=== PATIENT | male | born 1990 | race Caucasian/White ===

== ENCOUNTER 2018-08-06 12:16 | Observation (INO) ==
[2018-08-06] MEDS ORDERED: Sodium Chloride 0.9% 1,000 ML PRIMARY IV ONE (12:34)
[2018-08-06] MEDS ORDERED: ASPIRIN 81 MG (BABY) CHEWABLE TABLET PO ONE (12:34)
[2018-08-06] MEDS ORDERED: ADENOSINE 6 MG/2 ML IVP ONE ×2 (12:36→12:53)
[2018-08-06 12:41] LABS: BASOPHILS # (AUTO) 0.03 10*3/UL; BASOPHILS % (AUTO) 0.3 % (0-1); EOSINOPHILS # (AUTO) 0.08 10*3/UL; EOSINOPHILS % (AUTO) 0.8 % (0-8); Hematocrit [HCT] 47.8 % (42.0-52.0); Hemoglobin [HGB] 17.3 g/dL (14.0-18.0); LYMPHOCYTES # (AUTO) 2.15 10*3/uL; MEAN CORPUSCULAR HEMOGLOBIN 30.7 PG (27-31); MEAN CORPUSCULAR HGB CONC 36.2 g/dL (33-37); MEAN CORPUSCULAR VOLUME 84.9 FL (80-90); MONOCYTES # (AUTO) 0.93 10*3/UL (0.3-0.8); MONOCYTES % (AUTO) 9.5 % (5-15); NEUTROPHILS # (AUTO) 6.64 10*3/UL; NEUTROPHILS % (AUTO) 67.5 % (50-80); RED BLOOD COUNT 5.63 10^6/uL (4.70-6.10)
[2018-08-06 12:42] LABS: PLATELET MORPHOLOGY COMMENT NORMAL MORPHOLOGY (NORM); RBC MORPHOLOGY COMMENT NORMAL MORPHOLOGY (NORM); WBC MORPHOLOGY COMMENT NORMAL MORPHOLOGY (NORM)
[2018-08-06 12:48] LABS: BLOOD UREA NITROGEN 12 mg/dL (7-22); BUN/CREATININE RATIO 17.14 (6-20); SERUM ALBUMIN 5.3 g/dL (3.5-4.8)
[2018-08-06] MEDS ORDERED: DILTIAZEM 5 MG/ML - 5 ML IV ONE ×2 (12:53→13:19)
--- NOTE | 2018-08-06 13:35 | DI ---
AP CHEST X-RAY, 08/06/2018 12:35 PM : Clinical History: Chest pain. Previous Exam: None at this facility. There is no acute soft tissue or bony abnormality. Heart size is normal. Lungs are clear. Mediastinal structures are normal. There are no pulmonary nodules. Reading: Normal chest x-ray.
[2018-08-06] MEDS ORDERED: Diltiazem Drip 125 MG in Sodium Chloride 0.9% 100 ML IV ONE ×2 (13:47→15:44)
[2018-08-06 14:53] LABS: BILIRUBIN,URINE NEGATIVE (NEG); CLARITY,URINE CLEAR (CLEAR); COLOR,URINE YELLOW; GLUCOSE, URINE (UA) NEGATIVE (NEG); OCCULT BLOOD,URINE Trace-intact (NEG); PH,URINE 8.5 (5.0-8.5); PROTEIN,URINE NEGATIVE (NEG); UROBILINOGEN,URINE 0.2 mg/dL (0.2)
[2018-08-06 15:00] LABS: SQUAMOUS EPITHELIAL CELL,UR RARE; URINE SAMPLE TYPE CLEAN CATCH URINE
--- NOTE | 2018-08-06 15:07 | DI ---
LATERAL CHEST X-RAY, 08/06/2018 2:03 PM : Clinical History: Irregular heart rate. Previous Exam: Earlier today at 1315 hours. There is no acute soft tissue or bony abnormality. Heart size is normal on this lateral projection. N o infiltrate or effusion is present. Mediastinal structures are normal for this lateral projection. T he thoracic spine is normal. Reading: Normal lateral chest x-ray. There is no evidence of cardiac chamber enlargement on this projection.
--- NOTE | 2018-08-06 15:19 | PDOC ---
Palpitations HPI - General Chief Complaint: Palpitations Stated Complaint: svt Date Seen by Provider: 08/06/18 Time Seen by Provider: 13:00 Source: POSITIVE: Patient, Spouse Exam Limitations: POSITIVE: No limitations Nurse's Notes Reviewed & Considered: Yes EMS Report Reviewed & Considered: Verbal Nurse's Notes Reviewed & Considered: Yes - History of Present Illness Initial Comments: The patient is a 27-year-old male. He went to see his primary care provider because for the last 3 days he's had a cough and some nasal congestion. He thinks she's possibly had a fever. His primary care provider noted that the patient was tachycardic and had an irregular rhythm. He or she therefore contacted the ambulance service, who brought the patient to the emergency room. On arrival to the emergency room he had an narrow complex irregular rhythm at about 158/m. 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 Solomon. He denies any chest pain. No syncope or near-syncope. No sore throats. No GI or or sensory or motor symptoms. He states he was diagnosed with "tachycardia "for years ago. Body Location Affected: REPORTS: Chest Timing: REPORTS: Unknown Duration: >24 hours (Probably 3 days) Quality: REPORTS: Other (Patient denies any pain anywhere) Context: REPORTS: Hx of SVT. DENIES: Onset w/ Emotional Upset, Onset w/ Sleep, Hx of Caffeine Use, Hx of Decongestant Use, Hx of Cocaine Abuse, Hx of Amphetamine Abuse, Hx of Arrhythmia, Hx of VT, Hx of Atrial Fibrillation, Hx of WPW, Other Associated Symptoms: REPORTS: Fever Modifying Factors: improves with: None Reported Similar Symptoms Previously: Yes Recently seen/treated/hospitalized: Yes Any Prior Injuries Related to Current Complaint?: No - Patient Home Medications Home Medications: Home Medications NK 08/06/18 - Patient Allergies Allergies/Adverse Reactions: Allergies 3 Allergy/AdvReac Type Severity Reaction Status Date / Time caffeine AdvReac Unknown tachycardia Verified 08/06/18 14:33 Past Medical History - heen HEENT History: Denies History Cardiovascular History: Other (please comment) Additional Cardiovasular History: RAPID HEART RATE Respiratory History: Denies History Gastrointestinal History: Denies History Genitourinary History: Denies History Endocrine History: Denies History Musculoskeletal History: Denies History Prosthesis or Implant: No Neurological History: Denies History Blood Disorders: Denies History Psychiatric History: Denies History History of Sexually Transmitted Diseases: No Cancer History: Denies History History of MDRO: No History of Other Communicable Diseases: No Alcohol Use: Occasionally In the Past 12 Months, Have Used or Abuse Any Substance: None Previous Surgical History: No Anesthesia Reactions: No Malignant Hyperthermia: No Significant Family History: No pertinent family hx Past Medical History Reviewed: Reviewed - No Changes ROS - Limitations ROS Limitations: No Limitations Constitution: REPORTS: Fever (Patient thinks he may have been running a fever lately) Cardiovascular: REPORTS: Denies Cardiac Symptoms Respiratory: REPORTS: Denies Resp Symptoms Neurological: REPORTS: Denies Neuro Symptoms Gastrointestinal: REPORTS: Denies GI Symptoms Endocrine: REPORTS: Denies Symptoms Musculoskeletal: REPORTS: Denies MS Symptoms Genitourinary: REPORTS: Denies Symptoms Eyes: REPORTS: Denies Symptoms ENT: REPORTS: Denies Symptoms Skin: REPORTS: Denies Skin Symptoms Lympathic: REPORTS: Denies Lympathic Symptoms Immunologic: POSITIVE: Denies Symptoms Psychiatric: POSITIVE: Denies Psych Symptoms Palpitations Exam - General Appearance General Appearance: REPORTS: Alert, Cooperative, No Acute Distress, No Evidence of Trauma - HEENT HEENT: POSITIVE: Head Inspection Nml, Eyes Inspection Nml, Ears Inspection Nml, Nose Inspection Nml, Oral/Dental Inspect. Nml, Pharynx Inspect. Nml, PERRL, EOMI - Neck Neck: POSITIVE: Normal Inspection - Respiratory Respiratory: REPORTS: No Respiratory Distress, Breath Sounds Normal, Chest Non- Tender - Cardiovascular Cardiovascular: POSITIVE: Normal PMI, No JVD, No Murmur, No Gallop, No Friction Rub, Irreg Irregular Rhythm, Tachycardia. NEGATIVE: Regular Rate and Rhythm ( irregular) Peripheral Pulses: Radial (R): 2+, Radial (L): 2+ - Abdomen Abdomen: Soft: (All Quadrants), Normal Bowel Sounds: (All Quadrants), Denies Tenderness: (All Quadrants), No Splenomegaly: (All Quadrants), No Hepatomegaly: (All Quadrants), No Guarding: (All Quadrants), No Rebound: (All Quadrants), No Palpable Pulse: (All Quadrants), No Palpabale Mass: (All Quadrants), No Distention: (All Quadrants), No Rigidity: (All Quadrants) - Back Back: POSITIVE: Normal Inspection - Skin Skin: REPORTS: Intact, Normal For Race, Warm, Dry, No Rash - Extremities Extremity: Non-Tender: (All Extremities), Normal ROM: (All Extremities), Normal Inspection: (All Extremities) - Neurological / Psychological Neurological: POSITIVE: Affect Apporpriate, Oriented X3, 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 Normal As Tested, Motor Normal, Sensation Normal Palpitations Progress - Results Reviewed by me Xrays/CTs/US Reviewed by me: Yes Discussed with Radiologist: Yes Radiology Findings: Chest x-ray normal per radiologist Lab Results Reviewed by Me: Yes Lab Results:: Laboratory Results 3 08/06/18 08/06/18 08/06/18 12:18 12:18 12:18 WBC RBC Hgb Hct MCV MCH MCHC RDW Std Deviation RDW Coeff of Talon Plt Count MPV Immature Gran % (Auto) Neut % (Auto) Lymph % (Auto) [place] % (Auto) Eos % (Auto) Baso % (Auto) Immature Gran # (Auto) Neut # (Auto) Lymph # (Auto) [place] # (Auto) Eos # (Auto) Baso # (Auto) WBC Morphology Comment Plt Morphology Comment RBC Morph Comment D-Dimer Sodium 139 Potassium 4.3 Chloride 106 Carbon Dioxide 22 L Anion Gap 11 BUN 12 Creatinine 0.7 Estimated GFR > 60 BUN/Creatinine Ratio 17.14 Glucose 97 Calculated Osmolality 287.0 Calcium 10.3 Total Bilirubin 0.3 AST 40 ALT 51 Alkaline Phosphatase 71 CK-MB (CK-2) 0.42 Troponin I < 0.012 NT-Pro-B Natriuret Pep 26.2 Total Protein 8.5 H Albumin 5.3 H Globulin 3.2 Albumin/Globulin Ratio 1.60 TSH Free T4 Ur Collection Type Urine Color Urine Clarity Urine pH Ur Specific Mize Urine Protein Urine Glucose (UA) Urine Ketones Urine Occult Blood Urine Nitrate Urine Bilirubin Urine Urobilinogen Ur Leukocyte Esterase Urine RBC Urine WBC Ur Squamous Epith Cells Ur Renal Epithelial Cell Urine Crystals Urine Bacteria Urine Casts Urine Mucus Urine Trichomonas Urine Yeast 3 08/06/18 08/06/18 08/06/18 12:18 12:30 12:35 WBC 9.84 RBC 5.63 Hgb 17.3 Hct 47.8 MCV 84.9 MCH 30.7 MCHC 36.2 RDW Std Deviation 40.0 RDW Coeff of Talon 12.9 Plt Count 305 MPV 10.0 Immature Gran % (Auto) 0.1 Neut % (Auto) 67.5 Lymph % (Auto) 21.8 [place] % (Auto) 9.5 Eos % (Auto) 0.8 Baso % (Auto) 0.3 Immature Gran # (Auto) 0.01 Neut # (Auto) 6.64 Lymph # (Auto) 2.15 [place] # (Auto) 0.93 H Eos # (Auto) 0.08 Baso # (Auto) 0.03 WBC Morphology Comment Normal morphology Plt Morphology Comment Normal morphology RBC Morph Comment Normal morphology D-Dimer 0.19 Sodium Potassium Chloride Carbon Dioxide Anion Gap BUN Creatinine Estimated GFR BUN/Creatinine Ratio Glucose Calculated Osmolality Calcium Total Bilirubin AST ALT Alkaline Phosphatase CK-MB (CK-2) Troponin I NT-Pro-B Natriuret Pep Total Protein Albumin Globulin Albumin/Globulin Ratio TSH 4.79 H Free T4 1.09 Ur Collection Type Urine Color Urine Clarity Urine pH Ur Specific Mize Urine Protein Urine Glucose (UA) Urine Ketones Urine Occult Blood Urine Nitrate Urine Bilirubin Urine Urobilinogen Ur Leukocyte Esterase Urine RBC Urine WBC Ur Squamous Epith Cells Ur Renal Epithelial Cell Urine Crystals Urine Bacteria Urine Casts Urine Mucus Urine Trichomonas Urine Yeast 3 08/06/18 14:50 WBC RBC Hgb Hct MCV MCH MCHC RDW Std Deviation RDW Coeff of Talon Plt Count MPV Immature Gran % (Auto) Neut % (Auto) Lymph % (Auto) [place] % (Auto) Eos % (Auto) Baso % (Auto) Immature Gran # (Auto) Neut # (Auto) Lymph # (Auto) [place] # (Auto) Eos # (Auto) Baso # (Auto) WBC Morphology Comment Plt Morphology Comment RBC Morph Comment D-Dimer Sodium Potassium Chloride Carbon Dioxide Anion Gap BUN Creatinine Estimated GFR BUN/Creatinine Ratio Glucose Calculated Osmolality Calcium Total Bilirubin AST ALT Alkaline Phosphatase CK-MB (CK-2) Troponin I NT-Pro-B Natriuret Pep Total Protein Albumin Globulin Albumin/Globulin Ratio TSH Free T4 Ur Collection Type Clean catch urine Urine Color Yellow Urine Clarity Clear Urine pH 8.5 Ur Specific Mize 1.015 Urine Protein Negative Urine Glucose (UA) Negative Urine Ketones Negative Urine Occult Blood Trace-intact Urine Nitrate Negative Urine Bilirubin Negative Urine Urobilinogen 0.2 Ur Leukocyte Esterase Negative Urine RBC None Urine WBC None Ur Squamous Epith Cells Rare Ur Renal Epithelial Cell None Urine Crystals None Urine Bacteria None Urine Casts None Urine Mucus None Urine Trichomonas None Urine Yeast None CBC and BMP: 08/06/18 12:35 08/06/18 12:18 EKG Interpreted/Reviewed By Me:: Yes EKG Interpretation:: POSITIVE: Normal Intervals, Normal [place], Normal QRS, Normal ST/T. NEGATIVE: Normal Sinus Rhythm, Normal Rate - Patient's Progress Pain Medication Addressed: POSITIVE: Not Applicable School/Work Release Addressed: POSITIVE: Not Applicable Re-examine Time: 14:00 Re-Examine Comment: On patient's initial presentation to the emergency room he seemed to have a sinus tachycardia with runs of atrial fibrillation. Patient given 6 mg of adenosine which temporary slowed his rate and which showed a atrial fibrillation. His tachycardia then resumed. At this point the patient was given 0.25 mg of Cardizem by bolus over 2 minutes with no improvement and then this was repeated at 0.35 mg/kg, also without any improvement. Patient was then started on a Cardizem drip at 15 mg per hour. At this time the patient still has a narrow complex tachycardia at around 147/m. Patient otherwise remains asymptomatic except for a hacking cough. Status: POSITIVE: Unchanged, Re-Examined Quality Measure Initiative: CP/AMI: POSITIVE: EKG, ASA - Consult Consult (If Yes, Name of Consulting MD & Time Called): Yes (Dr. Barker, hospitalist, [id number]) Consulting MD will see pt:: [place] [facility] [place] Counseled: POSITIVE: Patient, Family, RE: Lab Results, RE: Radiology Results, RE : DX, RE: Need for F/U Patient Care Time - Estimated PCT Patient Care Time (In Minutes): 60 Vital Signs - Recent Vital Signs Vital Signs: Blood pressure 134/50, heart rate 157 and irregular, respiratory rate 16, temperature 90.9F, oxygen saturation 100% on room air. - VS Reviewed Vital Signs Reviewed: Yes Discharge Clinical Impression: Atrial arrhythmia Discharge Disposition: Admit to Inpatient Follow Up With: MYRIAM GOODE [Primary Care Provider] - Date Decision to Admit to Inpatient: 08/06/18 Time Decision to Admit to Inpatient: 14:00
[2018-08-06] MEDS ORDERED: LIDOCAINE W/ SODIUM BICARB 0.5 ML SYR SUBD PRN (15:44)
[2018-08-06] MEDS ORDERED: ONDANSETRON 4 MG/2 ML VIAL IVP PRN (15:44)
[2018-08-06] MEDS ORDERED: DOCUSATE 100 MG CAPSULE PO PRN (15:44)
[2018-08-06] MEDS ORDERED: CALCIUM CARBONATE 500 MG (TUMS) CHEWABLE TABLET PO PRN (15:44)
[2018-08-06] MEDS ORDERED: ACETAMINOPHEN 325 MG TABLET PO PRN (15:44)
[2018-08-06 15:49] VITALS: TEMP 99
--- NOTE | 2018-08-06 16:06 | PDOC ---
HPI - History of Present Illness Date of Service: 08/06/18 Time of Service: 16:04 Chief Complaint: Cough History of Present Illness: This very pleasant 27-year-old male with a history of supraventricular tachycardia on Taztia, although he has not been able to afford it due to loss of insurance and job in the past, who presents today with complaints of cough for the last couple of days along with congestion, some phlegm and postnasal drip, and low-grade temps to 99. He was noted to have a fast heart rate in the urgent care when he presented with the symptoms. He's been using NyQuil, but the high blood pressure version. It does still have antihistamines at that can cause tachycardia. He was not aware that when he was taking the medication. In the urgent care, an EKG was done and although the machine read out atrial fibrillation it marches out regularly for supraventricular tachycardia. He had vagal maneuvers done and carotid massage done and his heart rate did not respond. He then came to the emergency room via ambulance and they gave him adenosine and he initially slowed to some degree but went right back into SVT. He was placed on Cardizem drip and has not been able to slow down. He was admitted to me at that point. He was up to 20 mg per hour, and then his systolic blood pressure dropped down into the 80s. He is currently on 15 mg per hour. His heart rate persisted and the 150s to 160s. Emergency room physician told me that when it did slow down, he could've been in atrial fibrillation, but I'm certainly not seeing that on the tracings that I have available. When I watch him on the heart rate monitor, it looks like SVT with an occasional premature ventricular contraction. The patient does state that he is mildly short of breath but he denies any chest pain and he is otherwise asymptomatic. I spoke with cardiology in [place], and we will transfer the patient there for continued monitoring and any potential cardioversion should he need it. Detail to me that he had some ear pressure on the right side, but was told he had no evidence of ear infection on exam in the urgent care. He had a chest x-ray done and there was no evidence of pneumonia. Past Medical History Medical History: 1. Supraventricular tachycardia, generally managed with taztia , with recommendations at one point to consider ablation Surgical History: Right leg surgery due to an injury Pertinent Family History: Significant for hypertension in his father Past Social History: . Has healthy children. Currently works for [employer]. Does not smoke. Occasionally drinks alcohol. Tobacco Use: Never Smoker In the Past 12 Months, Have Used or Abuse Any of the Following Substance: None Alcohol Use: Occasionally Medication / Allergies Home Medications: Home Medications 3 Medication Instructions Recorded Confirmed Type NK 08/06/18 08/06/18 History Allergies/Adverse Reactions: Allergies 3 Allergy/AdvReac Type Severity Reaction Status Date / Time caffeine AdvReac Unknown tachycardia Verified 08/06/18 14:33 Review of Systems - Review of Systems All Systems: Reviewed & No Additional Complaints Except as Stated (I did a 12 point review of systems and other than that discussed in history present illness it is negative with exceptions noted below.) - Ear/Nose Exam Ear/Nose Exam: REPORTS: Sinus Pain, Rhinorrhea, Congestion Exam - Vitals Vital Signs: Vital Signs Temperature 99.0 F Temperature Source Oral Pulse Rate [Telemetry] 158 Respiratory Rate 22 Blood Pressure [Right Arm] 106/85 Pulse Ox 99 Oxygen Delivery Method Room Air Height 5 ft 9 in Weight 159 lb 4.8 oz - General General Appearance: No Acute Distress, Cooperative - Head Head Exam: Normal Inspection, Normocephalic, Atraumatic - Eye Eye Exam: POSITIVE: No Scleral Icterus - ENT ENT Exam: POSITIVE: TM's Normal Bilaterally (No evidence of erythema.), Mucous Membranes Moist Additonal ENT Exam Details: No sinus tenderness on palpation of face. - Neck Neck Exam: Normal Inspection, No Tenderness, No Lymphadenopathy, No Thyromegaly , JVP is not Raised - Respiratory Respiratory Exam: POSITIVE: Clear to Auscultation - Bilaterally, Breathing Non Labored, Normal to Percussion and Palpation - Cardiovascular Cardiovascular Exam: POSITIVE: No Murmur, No Clicks, No Gallops, No Rubs, Tachycardia, No JVD - GI/Abdominal GI/Abdominal Exam: POSITIVE: Normal Bowel Sounds, Non Tender, Non Distended, Soft - Rectal Rectal Exam: POSITIVE: Deferred - External Exam: POSITIVE: Deferred Exam: POSITIVE: Deferred - Extremities Extremities Exam: POSITIVE: No Clubbing Present, No Edema Present, No Cyanosis Present - Back Back Exam: POSITIVE: No CVA Tenderness - Neurological Neurological Exam: POSITIVE: Alert, Oriented x 3, No Facial Droop, Speech Intact / Clear, Moves All Extremities Equally - Psychiatric Psychiatric Exam: POSITIVE: Normal Affect, Normal Mood Results - Labs CBC and BMP: 08/06/18 12:35 08/06/18 12:18 Additional Lab Results: Laboratory Results 08/06/18 08/06/18 08/06/18 Range/Units 12:18 12:18 12:18 WBC (4.8-10.8) 10^3/uL RBC (4.70-6.10) 10^6/uL Hgb (14.0-18.0) g/dL Hct (42.0-52.0) % MCV (80-90) FL MCH (27-31) PG MCHC (33-37) g/dL RDW Std Deviation (39-50) fL RDW Coeff of [place] (11.5-14.5) % Plt Count (140-350) 10*3/uL MPV (7.4-12.2) FL Immature Gran % (Auto) (0-5) % Neut % (Auto) (50-80) % Lymph % (Auto) (10-50) % [place] % (Auto) (5-15) % Eos % (Auto) (0-8) % Baso % (Auto) (0-1) % Immature Gran # (Auto) 10*3/UL Neut # (Auto) 10*3/UL Lymph # (Auto) 10*3/uL [place] # (Auto) (0.3-0.8) 10*3/UL Eos # (Auto) 10*3/UL Baso # (Auto) 10*3/UL WBC Morphology Comment (NORM) Plt Morphology Comment (NORM) RBC Morph Comment (NORM) D-Dimer (0.00-0.59) mg/L Sodium 139 (135-145) meq/L Potassium 4.3 (3.8-5.2) meq/L Chloride 106 (98-112) meq/L Carbon Dioxide 22 L (23-33) meq/L Anion Gap 11 (5-20) BUN 12 (7-22) mg/dL Creatinine 0.7 (0.70-1.50) mg/dL Estimated GFR > 60 (>60 ml/min/1.73m(2)) BUN/Creatinine Ratio 17.14 (6-20) Glucose 97 (78-110) mg/dL Calculated Osmolality 287.0 (267-292) mOsm/kg Calcium 10.3 (8.7-10.7) mg/dL Total Bilirubin 0.3 (0.3-1.2) mg/dL AST 40 (21-57) IU/L ALT 51 (21-72) IU/L Alkaline Phosphatase 71 (38-126) IU/L CK-MB (CK-2) 0.42 (0.00-5.00) NG/ML Troponin I < 0.012 (< 0.040) ng/mL NT-Pro-B Natriuret Pep 26.2 (0-125) PG/ML Total Protein 8.5 H (6.1-8.0) g/dL Albumin 5.3 H (3.5-4.8) g/dL Globulin 3.2 (2.50-4.10) g/dL Albumin/Globulin Ratio 1.60 (1.3-2.0) mg/g TSH (0.2700-4.2000) uIU/mL Free T4 (0.93-1.71) ng/dL Ur Collection Type Urine Color Urine Clarity (CLEAR) Urine pH (5.0-8.5) Ur Specific [place] (1.005-1.030) Urine Protein (NEG) mg/dl Urine Glucose (UA) (NEG) mg/dL Urine Ketones (NEG) Urine Occult Blood (NEG) Urine Nitrate (NEG) Urine Bilirubin (NEG) Urine Urobilinogen (0.2) mg/dL Ur Leukocyte Esterase (NEG) Urine RBC (NONE) /hpf Urine WBC (NONE) Ur Squamous Epith Cells (NONE) Ur Renal Epithelial Cell (NONE) Urine Crystals Urine Bacteria (NONE) Urine Casts Urine Mucus (NONE) Urine Trichomonas (NONE) Urine Yeast (NONE) 08/06/18 08/06/18 08/06/18 Range/Units 12:18 12:30 12:35 WBC 9.84 (4.8-10.8) 10^3/uL RBC 5.63 (4.70-6.10) 10^6/uL Hgb 17.3 (14.0-18.0) g/dL Hct 47.8 (42.0-52.0) % MCV 84.9 (80-90) FL MCH 30.7 (27-31) PG MCHC 36.2 (33-37) g/dL RDW Std Deviation 40.0 (39-50) fL RDW Coeff of [place] 12.9 (11.5-14.5) % Plt Count 305 (140-350) 10*3/uL MPV 10.0 (7.4-12.2) FL Immature Gran % (Auto) 0.1 (0-5) % Neut % (Auto) 67.5 (50-80) % Lymph % (Auto) 21.8 (10-50) % [place] % (Auto) 9.5 (5-15) % Eos % (Auto) 0.8 (0-8) % Baso % (Auto) 0.3 (0-1) % Immature Gran # (Auto) 0.01 10*3/UL Neut # (Auto) 6.64 10*3/UL Lymph # (Auto) 2.15 10*3/uL [place] # (Auto) 0.93 H (0.3-0.8) 10*3/UL Eos # (Auto) 0.08 10*3/UL Baso # (Auto) 0.03 10*3/UL WBC Morphology Comment Normal morphology (NORM) Plt Morphology Comment Normal morphology (NORM) RBC Morph Comment Normal morphology (NORM) D-Dimer 0.19 (0.00-0.59) mg/L Sodium (135-145) meq/L Potassium (3.8-5.2) meq/L Chloride (98-112) meq/L Carbon Dioxide (23-33) meq/L Anion Gap (5-20) BUN (7-22) mg/dL Creatinine (0.70-1.50) mg/dL Estimated GFR (>60 ml/min/1.73m(2)) BUN/Creatinine Ratio (6-20) Glucose (78-110) mg/dL Calculated Osmolality (267-292) mOsm/kg Calcium (8.7-10.7) mg/dL Total Bilirubin (0.3-1.2) mg/dL AST (21-57) IU/L ALT (21-72) IU/L Alkaline Phosphatase (38-126) IU/L CK-MB (CK-2) (0.00-5.00) NG/ML Troponin I (< 0.040) ng/mL NT-Pro-B Natriuret Pep (0-125) PG/ML Total Protein (6.1-8.0) g/dL Albumin (3.5-4.8) g/dL Globulin (2.50-4.10) g/dL Albumin/Globulin Ratio (1.3-2.0) mg/g TSH 4.79 H (0.2700-4.2000) uIU/mL Free T4 1.09 (0.93-1.71) ng/dL Ur Collection Type Urine Color Urine Clarity (CLEAR) Urine pH (5.0-8.5) Ur Specific [place] (1.005-1.030) Urine Protein (NEG) mg/dl Urine Glucose (UA) (NEG) mg/dL Urine Ketones (NEG) Urine Occult Blood (NEG) Urine Nitrate (NEG) Urine Bilirubin (NEG) Urine Urobilinogen (0.2) mg/dL Ur Leukocyte Esterase (NEG) Urine RBC (NONE) /hpf Urine WBC (NONE) Ur Squamous Epith Cells (NONE) Ur Renal Epithelial Cell (NONE) Urine Crystals Urine Bacteria (NONE) Urine Casts Urine Mucus (NONE) Urine Trichomonas (NONE) Urine Yeast (NONE) 08/06/18 Range/Units 14:50 WBC (4.8-10.8) 10^3/uL RBC (4.70-6.10) 10^6/uL Hgb (14.0-18.0) g/dL Hct (42.0-52.0) % MCV (80-90) FL MCH (27-31) PG MCHC (33-37) g/dL RDW Std Deviation (39-50) fL RDW Coeff of [place] (11.5-14.5) % Plt Count (140-350) 10*3/uL MPV (7.4-12.2) FL Immature Gran % (Auto) (0-5) % Neut % (Auto) (50-80) % Lymph % (Auto) (10-50) % [place] % (Auto) (5-15) % Eos % (Auto) (0-8) % Baso % (Auto) (0-1) % Immature Gran # (Auto) 10*3/UL Neut # (Auto) 10*3/UL Lymph # (Auto) 10*3/uL [place] # (Auto) (0.3-0.8) 10*3/UL Eos # (Auto) 10*3/UL Baso # (Auto) 10*3/UL WBC Morphology Comment (NORM) Plt Morphology Comment (NORM) RBC Morph Comment (NORM) D-Dimer (0.00-0.59) mg/L Sodium (135-145) meq/L Potassium (3.8-5.2) meq/L Chloride (98-112) meq/L Carbon Dioxide (23-33) meq/L Anion Gap (5-20) BUN (7-22) mg/dL Creatinine (0.70-1.50) mg/dL Estimated GFR (>60 ml/min/1.73m(2)) BUN/Creatinine Ratio (6-20) Glucose (78-110) mg/dL Calculated Osmolality (267-292) mOsm/kg Calcium (8.7-10.7) mg/dL Total Bilirubin (0.3-1.2) mg/dL AST (21-57) IU/L ALT (21-72) IU/L Alkaline Phosphatase (38-126) IU/L CK-MB (CK-2) (0.00-5.00) NG/ML Troponin I (< 0.040) ng/mL NT-Pro-B Natriuret Pep (0-125) PG/ML Total Protein (6.1-8.0) g/dL Albumin (3.5-4.8) g/dL Globulin (2.50-4.10) g/dL Albumin/Globulin Ratio (1.3-2.0) mg/g TSH (0.2700-4.2000) uIU/mL Free T4 (0.93-1.71) ng/dL Ur Collection Type Clean catch urine Urine Color Yellow Urine Clarity Clear (CLEAR) Urine pH 8.5 (5.0-8.5) Ur Specific [place] 1.015 (1.005-1.030) Urine Protein Negative (NEG) mg/dl Urine Glucose (UA) Negative (NEG) mg/dL Urine Ketones Negative (NEG) Urine Occult Blood Trace-intact (NEG) Urine Nitrate Negative (NEG) Urine Bilirubin Negative (NEG) Urine Urobilinogen 0.2 (0.2) mg/dL Ur Leukocyte Esterase Negative (NEG) Urine RBC None (NONE) /hpf Urine WBC None (NONE) Ur Squamous Epith Cells Rare (NONE) Ur Renal Epithelial Cell None (NONE) Urine Crystals None Urine Bacteria None (NONE) Urine Casts None Urine Mucus None (NONE) Urine Trichomonas None (NONE) Urine Yeast None (NONE) - EKG Data -: EKG Interpreted by Me Rate: Tachycardia EKG Shows Normal: Sinus Rhythm - EKG Data EKG Interpretation: Other (This EKG was done in the clinic, and shows SVT on my view of the EKG. I do not have any EKGs from the emergency room. I was told that the rate initially did slow down to some degree with medications, and it perhaps was in atrial fibrillation although he did not persist in a slower rhythm despite adenosine and then Cardizem.) - Imaging Status: Image Reviewed by Me (Chest x-ray on my view is negative for pneumonia) Assessment and Plan - Patient Problems (1) SVT (supraventricular tachycardia) Current Visit: Yes Status: Acute Code(s): I47.1 - Supraventricular tachycardia (2) Viral syndrome Current Visit: Yes Status: Acute Code(s): B34.9 - Viral infection, unspecified - Assessment / Plan Additional Assessment/Plan Details: Given the patient's history, and use of [id number] antihistamine and NyQuil high blood pressure prep, this is what appears to be refractory supraventricular tachycardia that is not responding to adenosine, vasovagal maneuvers, or to Cardizem drip. There could be underlying atrial fibrillation. Either way, when the Cardizem drip was increased, the patient's systolic blood pressure is decreasing and so I don't think where he can't go more than 15 mg per hour at this time. His systolics currently or in the 100s. Given that he is a lean individual, I suspect that he probably runs lower systolics or normal systolic blood pressures. He is hemodynamically stable, but it may not remain that way. I think it would be much safer to have this patient in a setting where he could have potential DC cardioversion if necessary with the classification counselor. I spoke to the patient's classification counselor and he agreed to accept him at [facility] in [place], [place]. In terms of the upper respiratory symptoms, low-grade temperature of 99, I think he can be supported symptomatically with fluids, Tylenol for fever when necessary. I do not see any indication for antibiotics at this point. There is no active pneumonia on chest x-ray. D-dimer is negative, so I don't think there is a pulmonary emboli. It appears as isolated SVT so I think we can hold off on a CT scan at this point. Again, my concern is that this is refractory or unresponsive SVT at this point. This is despite normal measures for it, and perhaps it's related to NyQuil, but best assessed with the classification counselor. I greatly appreciate Dr. Solomon's assistance in this patient and his gracious acceptance of the patient to help him with this problem. I did speak with the patient and his about my recommendations to proceed to [place], and they were in agreement. In the meantime continue Hanna gao. Question potential ablation in the future, as per cardiology and the patient
[2018-08-06 16:11] VITALS: BP 115/72; RESP 18; O2SAT 97
--- NOTE | 2018-08-06 16:35 | DCSUMMARY ---
Hospitalization Summary Admit Date: 08/06/2018 Discharge Date: 08/06/18 Primary Diagnosis:: supraventricular tachycardia with possible A. fib Hospital Course: This very pleasant 27-year-old male who was admitted, placed on Cardizem, in the setting of SVT that did not respond to vasovagal maneuvers in the clinic earlier today, adenosine or Cardizem in the emergency room, although apparently he may have had some underlying atrial fibrillation per the emergency room physician's assessment after some initial slowing with adenosine. His history reveals that he took some NyQuil high blood pressure formulation which still contains antihistamines and likely caused the patient to go into this heart rhythm. He has some underlying viral syndrome symptoms of cough, congestion, and low-grade temperature at 99. He had some sinus tenderness that resolved. He has some postnasal drip. No evidence of pneumonia on chest x-ray. His d- dimer is negative and so unlikely has PE. 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. I'm not clear yet on whether or not the patient will need EC cardioversion for further cardiac workup. He has not been able to afford his calcium channel malena, but he was not aware that this also comes in a generic form. His and the patient and they agreed with the plan. Currently the patient does not have any chest pain. He stated that he had some mild shortness of breath, and he has no nausea or vomiting. His systolic pressure is 106, his heart rates in the 150s. Please note I asked the patient about use of any methamphetamines and he denies use. Urine drug screen is pending, but I do have orders in the lab and discussed with them and they will do that now. I believe the patient, but feel that with this presentation and it's best to check. Assessment and Plan: 1. As per discharge assessments noted 2. Disposition: Patient is discharged to [facility] 3. Condition on discharge, stable but his condition could deteriorate into unstable narrow complex tachycardia. 4. Diet: Nothing by mouth for now 5. Activities: As per [facility] 6. Follow-Up: 1. Sera Lamar in 7 days post discharge 2. 7. Medications at the Time of Discharge: Active Medications Generic Name Dose Route Start Last Admin Trade Name Freq PRN Reason Stop Dose Admin Acetaminophen 650 mg 08/06/18 15:44 Tylenol PO Q6H PRN Pain or Fever Calcium Carbonate 1 - 2 tab 08/06/18 15:44 Tums PO Q6H PRN Heartburn Docusate Sodium 100 mg 08/06/18 15:44 Colace PO BID PRN Constipation Sodium Chloride 1,000 mls @ 125 mls/hr 08/06/18 12:34 08/06/18 12:55 Normal Saline PRIMARY IV 08/06/18 20:33 Not Given ONCE (ED) ONE Diltiazem HCl 125 mg/ Sodium 125 mls @ 15 mls/hr 08/06/18 15:44 Chloride IV 08/07/18 00:03 .TITRATE ONE Protocol 15 MG/HR Sodium Chloride 25 mls @ 200 mls/hr 08/06/18 15:44 Normal Saline 0.9% IV .Post Infusion PRN No Primary IV for Flush ONLY Lidocaine HCl 0.5 ml 08/06/18 15:44 Lidocaine Buffered Inj SUBD ONCE PRN IV Starts Ondansetron HCl 4 mg 08/06/18 15:44 Zofran Inj IVP Q4H PRN NAUSEA / VOMITING 8. Time, care, counseling and coordination of care for this discharge is greater than 30 minutes. Exam - Vitals Vital Signs: Vital Signs Temperature 99.0 F Temperature Source Oral Pulse Rate [Telemetry] 160 Pulse Rate 160 Respiratory Rate 18 Blood Pressure [Right Arm] 115/72 Pulse Ox 97 Oxygen Delivery Method Room Air Height 5 ft 9 in Weight 159 lb 4.8 oz - General General Appearance: No Acute Distress, Cooperative - Eye Eye Exam: POSITIVE: No Scleral Icterus - Respiratory Respiratory Exam: POSITIVE: Clear to Auscultation - Bilaterally, Breathing Non Labored - Cardiovascular Cardiovascular Exam: POSITIVE: No Murmur, No Clicks, No Gallops, No Rubs, Tachycardia, No JVD - GI/Abdominal GI/Abdominal Exam: POSITIVE: Normal Bowel Sounds, Non Tender, Non Distended, Soft - Extremities Extremities Exam: POSITIVE: No Clubbing Present, No Edema Present, No Cyanosis Present - Neurological Neurological Exam: POSITIVE: Alert, Oriented x 3, No Facial Droop, Speech Intact / Clear, Moves All Extremities Equally Data Peritnent Studies: Laboratory Results 08/06/18 08/06/18 08/06/18 Range/Units 12:18 12:18 12:18 WBC (4.8-10.8) 10^3/uL RBC (4.70-6.10) 10^6/uL Hgb (14.0-18.0) g/dL Hct (42.0-52.0) % MCV (80-90) FL MCH (27-31) PG MCHC (33-37) g/dL RDW Std Deviation (39-50) fL RDW Coeff of Talon (11.5-14.5) % Plt Count (140-350) 10*3/uL MPV (7.4-12.2) FL Immature Gran % (Auto) (0-5) % Neut % (Auto) (50-80) % Lymph % (Auto) (10-50) % Pratt % (Auto) (5-15) % Eos % (Auto) (0-8) % Baso % (Auto) (0-1) % Immature Gran # (Auto) 10*3/UL Neut # (Auto) 10*3/UL Lymph # (Auto) 10*3/uL Pratt # (Auto) (0.3-0.8) 10*3/UL Eos # (Auto) 10*3/UL Baso # (Auto) 10*3/UL WBC Morphology Comment (NORM) Plt Morphology Comment (NORM) RBC Morph Comment (NORM) D-Dimer (0.00-0.59) mg/L Sodium 139 (135-145) meq/L Potassium 4.3 (3.8-5.2) meq/L Chloride 106 (98-112) meq/L Carbon Dioxide 22 L (23-33) meq/L Anion Gap 11 (5-20) BUN 12 (7-22) mg/dL Creatinine 0.7 (0.70-1.50) mg/dL Estimated GFR > 60 (>60 ml/min/1.73m(2)) BUN/Creatinine Ratio 17.14 (6-20) Glucose 97 (78-110) mg/dL Calculated Osmolality 287.0 (267-292) mOsm/kg Calcium 10.3 (8.7-10.7) mg/dL Total Bilirubin 0.3 (0.3-1.2) mg/dL AST 40 (21-57) IU/L ALT 51 (21-72) IU/L Alkaline Phosphatase 71 (38-126) IU/L CK-MB (CK-2) 0.42 (0.00-5.00) NG/ML Troponin I < 0.012 (< 0.040) ng/mL NT-Pro-B Natriuret Pep 26.2 (0-125) PG/ML Total Protein 8.5 H (6.1-8.0) g/dL Albumin 5.3 H (3.5-4.8) g/dL Globulin 3.2 (2.50-4.10) g/dL Albumin/Globulin Ratio 1.60 (1.3-2.0) mg/g TSH (0.2700-4.2000) uIU/mL Free T4 (0.93-1.71) ng/dL Ur Collection Type Urine Color Urine Clarity (CLEAR) Urine pH (5.0-8.5) Ur Specific Beeler (1.005-1.030) Urine Protein (NEG) mg/dl Urine Glucose (UA) (NEG) mg/dL Urine Ketones (NEG) Urine Occult Blood (NEG) Urine Nitrate (NEG) Urine Bilirubin (NEG) Urine Urobilinogen (0.2) mg/dL Ur Leukocyte Esterase (NEG) Urine RBC (NONE) /hpf Urine WBC (NONE) Ur Squamous Epith Cells (NONE) Ur Renal Epithelial Cell (NONE) Urine Crystals Urine Bacteria (NONE) Urine Casts Urine Mucus (NONE) Urine Trichomonas (NONE) Urine Yeast (NONE) 08/06/18 08/06/18 08/06/18 Range/Units 12:18 12:30 12:35 WBC 9.84 (4.8-10.8) 10^3/uL RBC 5.63 (4.70-6.10) 10^6/uL Hgb 17.3 (14.0-18.0) g/dL Hct 47.8 (42.0-52.0) % MCV 84.9 (80-90) FL MCH 30.7 (27-31) PG MCHC 36.2 (33-37) g/dL RDW Std Deviation 40.0 (39-50) fL RDW Coeff of Talon 12.9 (11.5-14.5) % Plt Count 305 (140-350) 10*3/uL MPV 10.0 (7.4-12.2) FL Immature Gran % (Auto) 0.1 (0-5) % Neut % (Auto) 67.5 (50-80) % Lymph % (Auto) 21.8 (10-50) % Pratt % (Auto) 9.5 (5-15) % Eos % (Auto) 0.8 (0-8) % Baso % (Auto) 0.3 (0-1) % Immature Gran # (Auto) 0.01 10*3/UL Neut # (Auto) 6.64 10*3/UL Lymph # (Auto) 2.15 10*3/uL Pratt # (Auto) 0.93 H (0.3-0.8) 10*3/UL Eos # (Auto) 0.08 10*3/UL Baso # (Auto) 0.03 10*3/UL WBC Morphology Comment Normal morphology (NORM) Plt Morphology Comment Normal morphology (NORM) RBC Morph Comment Normal morphology (NORM) D-Dimer 0.19 (0.00-0.59) mg/L Sodium (135-145) meq/L Potassium (3.8-5.2) meq/L Chloride (98-112) meq/L Carbon Dioxide (23-33) meq/L Anion Gap (5-20) BUN (7-22) mg/dL Creatinine (0.70-1.50) mg/dL Estimated GFR (>60 ml/min/1.73m(2)) BUN/Creatinine Ratio (6-20) Glucose (78-110) mg/dL Calculated Osmolality (267-292) mOsm/kg Calcium (8.7-10.7) mg/dL Total Bilirubin (0.3-1.2) mg/dL AST (21-57) IU/L ALT (21-72) IU/L Alkaline Phosphatase (38-126) IU/L CK-MB (CK-2) (0.00-5.00) NG/ML Troponin I (< 0.040) ng/mL NT-Pro-B Natriuret Pep (0-125) PG/ML Total Protein (6.1-8.0) g/dL Albumin (3.5-4.8) g/dL Globulin (2.50-4.10) g/dL Albumin/Globulin Ratio (1.3-2.0) mg/g TSH 4.79 H (0.2700-4.2000) uIU/mL Free T4 1.09 (0.93-1.71) ng/dL Ur Collection Type Urine Color Urine Clarity (CLEAR) Urine pH (5.0-8.5) Ur Specific Beeler (1.005-1.030) Urine Protein (NEG) mg/dl Urine Glucose (UA) (NEG) mg/dL Urine Ketones (NEG) Urine Occult Blood (NEG) Urine Nitrate (NEG) Urine Bilirubin (NEG) Urine Urobilinogen (0.2) mg/dL Ur Leukocyte Esterase (NEG) Urine RBC (NONE) /hpf Urine WBC (NONE) Ur Squamous Epith Cells (NONE) Ur Renal Epithelial Cell (NONE) Urine Crystals Urine Bacteria (NONE) Urine Casts Urine Mucus (NONE) Urine Trichomonas (NONE) Urine Yeast (NONE) 08/06/18 Range/Units 14:50 WBC (4.8-10.8) 10^3/uL RBC (4.70-6.10) 10^6/uL Hgb (14.0-18.0) g/dL Hct (42.0-52.0) % MCV (80-90) FL MCH (27-31) PG MCHC (33-37) g/dL RDW Std Deviation (39-50) fL RDW Coeff of Talon (11.5-14.5) % Plt Count (140-350) 10*3/uL MPV (7.4-12.2) FL Immature Gran % (Auto) (0-5) % Neut % (Auto) (50-80) % Lymph % (Auto) (10-50) % Pratt % (Auto) (5-15) % Eos % (Auto) (0-8) % Baso % (Auto) (0-1) % Immature Gran # (Auto) 10*3/UL Neut # (Auto) 10*3/UL Lymph # (Auto) 10*3/uL Pratt # (Auto) (0.3-0.8) 10*3/UL Eos # (Auto) 10*3/UL Baso # (Auto) 10*3/UL WBC Morphology Comment (NORM) Plt Morphology Comment (NORM) RBC Morph Comment (NORM) D-Dimer (0.00-0.59) mg/L Sodium (135-145) meq/L Potassium (3.8-5.2) meq/L Chloride (98-112) meq/L Carbon Dioxide (23-33) meq/L Anion Gap (5-20) BUN (7-22) mg/dL Creatinine (0.70-1.50) mg/dL Estimated GFR (>60 ml/min/1.73m(2)) BUN/Creatinine Ratio (6-20) Glucose (78-110) mg/dL Calculated Osmolality (267-292) mOsm/kg Calcium (8.7-10.7) mg/dL Total Bilirubin (0.3-1.2) mg/dL AST (21-57) IU/L ALT (21-72) IU/L Alkaline Phosphatase (38-126) IU/L CK-MB (CK-2) (0.00-5.00) NG/ML Troponin I (< 0.040) ng/mL NT-Pro-B Natriuret Pep (0-125) PG/ML Total Protein (6.1-8.0) g/dL Albumin (3.5-4.8) g/dL Globulin (2.50-4.10) g/dL Albumin/Globulin Ratio (1.3-2.0) mg/g TSH (0.2700-4.2000) uIU/mL Free T4 (0.93-1.71) ng/dL Ur Collection Type Clean catch urine Urine Color Yellow Urine Clarity Clear (CLEAR) Urine pH 8.5 (5.0-8.5) Ur Specific Beeler 1.015 (1.005-1.030) Urine Protein Negative (NEG) mg/dl Urine Glucose (UA) Negative (NEG) mg/dL Urine Ketones Negative (NEG) Urine Occult Blood Trace-intact (NEG) Urine Nitrate Negative (NEG) Urine Bilirubin Negative (NEG) Urine Urobilinogen 0.2 (0.2) mg/dL Ur Leukocyte Esterase Negative (NEG) Urine RBC None (NONE) /hpf Urine WBC None (NONE) Ur Squamous Epith Cells Rare (NONE) Ur Renal Epithelial Cell None (NONE) Urine Crystals None Urine Bacteria None (NONE) Urine Casts None Urine Mucus None (NONE) Urine Trichomonas None (NONE) Urine Yeast None (NONE) Procedures: [address] [facility] [place] [facility] [place] [id number] PH: DD: [phone] FAX: [phone] ~DIAGNOSTIC IMAGING REPORT~ Patient: PAUL VIERA : 1990 Sex: M Age: 27 Exam Name: XR CXR 1VW Exam Date: 08/06/18 Report # : [id number] CPT Code: 73398 EMR/MR #: [id number] Ordering: WINIFRED CARROLL Admiting: Primary: JANEY Bermudez MS Attending: Signed LATERAL CHEST X-RAY, 08/06/2018 2:03 PM : Clinical History: Irregular heart rate. Previous Exam: Earlier today at 1315 hours. There is no acute soft tissue or bony abnormality. Heart size is normal on this lateral projection. No infiltrate or effusion is present. Mediastinal structures are normal for this lateral projection. The thoracic spine is normal. Reading: Normal lateral chest x-ray. There is no evidence of cardiac chamber enlargement on this projection. Dictated By: 08/06/18 1501 ARIANA RAMIREZ MD. Signed By: 08/06/18 1507 ARIANA RAMIREZ MD. Patient Problems - Patient Problem List (1) SVT (supraventricular tachycardia) Current Visit: Yes Status: Acute Code(s): I47.1 - Supraventricular tachycardia Category: Medical (2) Viral syndrome Current Visit: Yes Status: Acute Code(s): B34.9 - Viral infection, unspecified Category: Medical
[2018-08-06 18:06] LABS: AMPHETAMINE SCREEN NEGATIVE (NEG); CANNABINOID SCREEN,URINE NEGATIVE (NEG); COCAINE SCREEN NEGATIVE (NEG); METHADONE URINE SCREEN NEGATIVE (NEG); METHAMPHETAMINES SCREEN,URINE NEGATIVE (NEG); OPIATE SCREEN,URINE NEGATIVE (NEG); URINE SAMPLE TYPE CLEAN CATCH URINE; URINE SPECIFIC GRAVITY - MAN 1.015
== END 2018-08-06 16:45 | disposition short-term general hospital (02) ==
LOC: ER 12:16 → MED/SURG 12:16
PROVIDERS: ADMIT Family Medicine; ATTEND Family Medicine